=== PATIENT | male | born 1975 | race Caucasian/White ===

== ENCOUNTER → 2020-09-27 02:21 | Outpatient (CLI) | payer OTHER, SELFPAY ==
[2020-09-27 21:58] LABS: SARS-CoV-2 RNA PCR Negative
== END ==
PROVIDERS: PCP Family Medicine; Visit Provider Internal Medicine Gastroenterology
DX: Z01.812 Encounter for preprocedural laboratory examination (principal); Z20.822 Contact with and (suspected) exposure to COVID-19
CPT/HCPCS: C9803; U0003; U0005

== ENCOUNTER 2020-09-30 00:59 | Day surgery (SDC) | payer OTHER, SELFPAY ==
[2020-09-09 09:22] VITALS: BMI 32.3
--- NOTE | 2020-09-27 09:35 | WPDANESEPPF ---
Anes - Initial Pre Proc Eval Procedure: Operation Date: 09/30/20 10:00 Proposed Procedures p Esophagogastroduodenoscopy - Torito Stack MD Date/Time: 09/27/20 09:35 Surgeon: Torito Stack MD Pre Op Diagnosis: Dsyphagia Patient Data Age: 44 Gender: M Height: 1.68 m Weight: 91 kg Allergies Allergy/AdvReac Type Severity Reaction Status Date / Time No Known Allergies Allergy Verified 09/30/20 08:44 Home Medications Medication Instructions Recorded Confirmed Type metoprolol succinate 50 mg 50 mg PO DAILY tablet 07/26/20 09/09/20 History tablet,extended release 24 hr loratadine 10 mg PO DAILY 09/09/20 09/09/20 History Patient hx anesthesia problems: none Family hx anesthesia problems: none PMFSH Past Medical History Medical History (Updated 08/15/20 @ 11:21 by Jennifer Leger APN-C) Essential (primary) hypertension GERD (gastroesophageal reflux disease) Hypertension Overweight Surgical History Surgical History Hx of tonsillectomy (~1987) Family History Family History Father Esophageal stricture Social History Social History Smoking packs per day: 1 Smoking cigarettes per day: 20.0 Years smoked: 20 Smoking pack-years: 20.00 Smoking status: Former smoker Tobacco type: cigarettes Alcohol intake: current Drinks per week: 18 Alcohol use details: beer Living arrangements: with family Gender identity (if verbalized by the patient): Male Spiritual care concerns: No Anes - Eval Final PreProcedure Day of Procedure 09/27/20 09:35 Patient weight: obese Heart: regular rate and rhythm Lungs: clear to auscultation and normal air movement Airway: Mallampati scale class II Neurological: alert and oriented Last oral intake: >/= 8 hours ASA classification: III Emergent: no Anesthetic plan: proceed Anesthesia type and monitoring: general GIVS and standard monitoring Informed Consent: The patient's anesthetic plan and its attendant risks and benefits were discussed with the patient/family/POA. Questions were solicited and answers provided to the satisfaction of the patient/family/POA.
[2020-09-30 08:46] VITALS: BP 125/81; PULSE 73; RESP 18; TEMP 36.4; O2SAT 100
[2020-09-30] MEDS: LACTATED RINGERS 1,000 ML 150 ML IV CONT (08:57)
--- NOTE | 2020-09-30 09:43 | PM.HPGS ---
History of Present Illness History of Present Illness Consent: Risks, benefits, and alternatives have been discussed and questions answered. Patient agrees to proceed with procedure. Chief complaint: Dsyphagia Narrative: Rusty Spear is a 44 year old male with dysphagia, never had egd Review of Systems Constitutional: Constitutional: Denies headache(s) and Denies weakness Eyes: Eyes: Denies blurry vision ENT: Reports Normal hearing present, Denies headache(s) and Denies neck pain Cardiovascular: Cardiovascular: Denies chest pain and Denies dyspnea Respiratory: Respiratory: Denies dyspnea Gastrointestinal: Gastrointestinal: Reports no additional gastrointestinal complaints Genitourinary: Genitourinary: Denies dysuria Musculoskeletal: Musculoskeletal: Denies neck pain Integumentary/Breasts: Skin/Breast: Denies dry skin Neurologic: Reports Normal hearing present, Denies headache(s) and Denies weakness Psychiatric: Psychiatric: Denies anxiety Endocrine: Endocrine: Denies change in body appearance Hematologic/Lymphatic: Hematologic/Lymphatic: Denies easy bleeding Allergic/Immunologic: Allergic/Immunologic: Denies urticaria PMFSH Past Medical History Medical History (Updated 08/15/20 @ 11:21 by LAUREANO Levy) Essential (primary) hypertension GERD (gastroesophageal reflux disease) Hypertension Overweight Surgical History Surgical History Hx of tonsillectomy (~1987) Family History Family History Father Esophageal stricture Social History Social History Smoking packs per day: 1 Smoking cigarettes per day: 20.0 Years smoked: 20 Smoking pack-years: 20.00 Smoking status: Former smoker Tobacco type: cigarettes Alcohol intake: current Drinks per week: 18 Alcohol use details: beer Living arrangements: with family Gender identity (if verbalized by the patient): Male Spiritual care concerns: No Meds Home Medications and Allergies Home Medications Medication Instructions Recorded Confirmed Type metoprolol succinate 50 mg 50 mg PO DAILY tablet 07/26/20 09/09/20 History tablet,extended release 24 hr loratadine 10 mg PO DAILY 09/09/20 09/09/20 History Allergies Allergy/AdvReac Type Severity Reaction Status Date / Time No Known Allergies Allergy Verified 09/30/20 08:44 Vital Signs Vital Signs - 24 hr 09/30/20 08:46 Temperature 97.6 F Pulse Rate 73 Respiratory Rate 18 Blood Pressure 125/81 Pulse Oximetry 100 Exam Const: General: comfortable and no acute distress HENMT: General nose exam: Normal nares present Eyes: General: appearance normal, both eyes and all related structures Neck: Neck: no JVD Resp: Auscultation: clear to auscultation bilaterally Cardio: Rate: regular rate Rhythm: regular rhythm GI: Inspection: non-distended GI Palp: Yes Soft to palpation Skin: General skin exam: normal color Neuro: General: gait normal Speech: normal speech Extrem: General: normal to inspection Psych: Mental Status: mental status grossly normal Assessment and Plan Assessment and plan (1) Dysphagia: Qualifiers: Dysphagia type: unspecified Qualified Code(s): R13.10 - Dysphagia, unspecified Code(s): R13.10 - Dysphagia, unspecified Status: Acute Assessment and Plan: egd to assess
[2020-09-30 09:53] VITALS: BP 99/57; PULSE 83; RESP 12; O2SAT 94
[2020-09-30 10:03] VITALS: BP 103/62; PULSE 75; RESP 11; O2SAT 93
[2020-09-30 10:13] VITALS: BP 107/70; BP 114/78; PULSE 64; PULSE 65; RESP 10; RESP 17; O2SAT 93; O2SAT 96
== END 2020-09-30 10:29 | disposition home or self-care (01) ==
PROVIDERS: PCP Nurse Practitioner Family; Visit Provider Internal Medicine Gastroenterology
PROC: 0DJ08ZZ Inspection of Upper Intestinal Tract, Via Natural or Artificial Opening Endoscopic (ICD-10-PCS; CPT 43235; principal; 2020-09-30 10:00)
DX: R13.10 Dysphagia, unspecified (principal); K21.00 Gastro-esophageal reflux disease with esophagitis, without bleeding; K20.0 Eosinophilic esophagitis; I10 Essential (primary) hypertension; E66.3 Overweight; Z87.891 Personal history of nicotine dependence
CPT/HCPCS: 43239; 88305; C9803; J2001; J2704; J7120; U0003; U0005